=== PATIENT | male | born 1980 | race Caucasian/White ===

== ENCOUNTER 2018-12-26 12:48 | Emergency (ER) | payer OTHER ==
[2018-12-26] MEDS ORDERED: TYLENOL 325 MG PO STA (13:21)
--- NOTE | 2018-12-26 13:21 | ERPHSYRPT ---
- History of Present Illness Time Seen by Provider: 12/26/18 13:10 Source: patient Exam Limitations: clinical condition Patient Subjective Stated Complaint: Pt states that he was trying to get into his vehicle yesterday and twisted his right leg which is now causing pain, can place weight on it but when he lifts it up, it hurts Triage Nursing Assessment: Pt c/o of right leg/knee pain that was due to him trying to get out of a vehicle yesterday and twisted his leg, states that he can put weight on it with no problems but when he lifts the leg is when he has the pain, pain is just below the right knee on the lateral side, no difficulties with strength, vitals wnl, pulses normal, doesn't appear to be in any distress Physician History: PATIENT COMPLAINS OF PAIN IN HIS RIGHT KNEE AFTER TWISTING KNEE WHILE STEPPING OUT OF HIS TRUCK YESTERDAY. DENIES DEFORMITY, SWELLING OR BRUISING. HAS PAIN UPON AMBULATION WHILE LIFTING UP LEG TO TAKE A STEP. Method of Injury: twisted Occurred: yesterday Quality: intermittent Severity of Pain-Max: mild Severity of Pain-Current: mild Lower Extremities Pain: knee: right Modifying Factors: Improves With: movement Associated Symptoms: other (PAIN OVER OUTER ASPECT OF RIGHT KNEE WHILE LIFTING FOOT OFF GROUND) Allergies/Adverse Reactions: codeine [Codeine] Allergy (Severe, Verified 12/26/18 13:05) Difficulty Breathing Home Medications: Famotidine 20 mg PO BID 09/07/14 [History] Metformin HCl 500 mg [Glucophage 500 MG] 500 mg PO BID 09/07/14 [History] Omeprazole 20 MG [Prilosec 20 mg] 20 mg PO DAILY 09/07/14 [History] Tizanidine HCl 4 mg [Zanaflex 4 MG] 4 mg PO Q8H 09/07/14 [History] Aspirin EC 325 mg [Ecotrin 325 MG] 325 mg PO DAILY 05/18/15 [History] Calcium Carb/Magnesium Hydrox [Rolaids Chewable Tablet] 1 tab PO UD PRN [History] Liraglutide [Victoza 2-Joseph] 1.8 mg SQ DAILY 12/23/15 [History] Empagliflozin [Jardiance] 25 mg PO DAILY 12/26/18 [History] Hx Tetanus, Diphtheria Vaccination/Date Given: Yes Hx Influenza Vaccination/Date Given: Yes Hx Pneumococcal Vaccination/Date Given: No - Past Medical History Pertinent Past Medical History: Yes Cardiac History: High Cholesterol, Hypertension Endocrine Medical History: Diabetes Type II GI Medical History: GERD Other Medical History: low blood sugar - Past Surgical History Past Surgical History: Yes Neuro Surgical History: Other Gastrointestinal: Cholecystectomy Musculoskeletal: Orthopedic Surgery Other Surgical History: Head trauma as a child - L elbow - t&A - Social History Smoking Status: Never smoker Exposure to second hand smoke: No Drug Use: none Patient Lives Alone: No - Nursing Vital Signs Nursing Vital Signs: Initial Vital Signs Temperature 98.1 F 12/26/18 12:54 Pulse Rate 88 12/26/18 12:54 Respiratory Rate 18 12/26/18 12:54 Blood Pressure 128/89 12/26/18 12:54 O2 Sat by Pulse Oximetry 95 12/26/18 12:54 Pain Scale Pain Intensity 4 - Physical Exam SpO2: 95 Ordered Tests: Active Orders 24 hr Category Date Time Status KNEE (3 VIEWS) Stat Exams 12/26/18 13:24 Taken Medication Summary Discontinued Medications Generic Name Dose Route Start Last Admin Trade Name Cate PRN Reason Stop Dose Admin Acetaminophen 650 mg 12/26/18 13:21 12/26/18 13:25 Tylenol 325 Mg PO 12/26/18 13:22 650 mg STAT STA Administration Acetaminophen Confirm 12/26/18 13:24 Tylenol 325 Mg Administered 12/26/18 13:25 Dose 650 mg .ROUTE .STK-MED ONE - Progress Counseled pt/family regarding: diagnosis, need for follow-up, rad results - Departure Departure Disposition: Home Clinical Impression: RIGHT KNEE STRAIN Condition: Stable Critical Care Time: No Referrals: CRISTHIAN CASTRO MD [Primary Care Provider] - Additional Instructions: TYLENOL EVERY 4 HOURS NEEDED FOR PAIN. APPLY ICE OVER YOUR KNEE EVERY 4 HOURS , 30 MINUTES FOR 48 HOURS. CONSULT YOUR PRIMARY CARE PROVIDER FOR EVALUATION.
[2018-12-26] MEDS ORDERED: TYLENOL 325 MG ONE (13:24)
--- NOTE | 2018-12-26 13:58 | XRAY ---
Indication: Pain following twisting injury. Comparison: None 3 views of the right knee demonstrates minimal medial knee spurring. No other bony, articular, or soft tissue abnormalities.
[2018-12-26 14:13] VITALS: BP 129/83
[2018-12-26 14:15] VITALS: PULSE 83; O2SAT 96
== END 2018-12-26 14:20 | disposition home or self-care (01) ==
LOC: ED 12:48
DX: S83.91XA Sprain of unspecified site of right knee, initial encounter (principal); X50.1XXA Overexertion from prolonged static or awkward postures, initial encounter; M25.561 Pain in right knee; I10 Essential (primary) hypertension; E78.00 Pure hypercholesterolemia, unspecified; E11.9 Type 2 diabetes mellitus without complications; Z79.4 Long term (current) use of insulin; K21.9 Gastro-esophageal reflux disease without esophagitis
CPT/HCPCS: 73562; 99283; A9270-GY

== ENCOUNTER 2019-08-01 20:01 | Emergency (ER) | payer OTHER ==
[2019-08-01] MEDS ORDERED: Sodium Chloride 0.9% 1000 ML 1,000 ML ONE (20:50)
[2019-08-01] MEDS ORDERED: PROTONIX 40 MG IV IV ONE (20:50)
[2019-08-01] MEDS ORDERED: Compazine 10 MG/2 ML ONE (20:50)
[2019-08-01 20:54] LABS: Absolute Neutrophil Ct (ANC) 6.93 (1.4-6.9); BASOPHIL % 0.6 % (0.0-0.4); Basophil (Absolute #) 0.06 (0-0.4); Eosinophil % 1.6 % (0.00-5.0); Eosinophil (Absolute #) 0.16 (0-0.5); Hematocrit 43.7 % (42-50); Hemoglobin 15.4 gm/dl (12.5-18.0); Lymphocyte (Absolute #) 1.68 (1.0-4.6); Lymphocytes % 16.5 % (24.0-44.0); Mean Cell Volume 87.1 fl (78-100); Mean Corpuscular Hemoglobin 30.7 pg (26-32); Mean Corpuscular Hgb Concent. 35.2 g/dl (32-36); Mean Platelet Volume 11.3 fl (6-9.5); Monocyte (Absolute #) 1.33 (0.0-1.3); Monocytes % 13.1 % (0.0-12.0); Neutrophil % 68.2 % (36.0-66.0); Platelet Count 265 K/mm3 (150-450); Red Blood Count 5.02 M/mm3 (4.1-5.6); Red Cell Distribution Width 13.5 % (11.5-14.0); White Blood Count 10.2 K/mm3 (4.0-10.5)
[2019-08-01] MEDS: PROTONIX 40 MG IV IV ONE (20:58)
[2019-08-01] MEDS: Sodium Chloride 0.9% 1000 ML 1,000 ML IV STA (20:58)
[2019-08-01 20:59] LABS: ALBUMIN 4.7 g/dL (3.5-5.0); ALKALINE PHOSPHATASE 82 U/L (38-126); AMYLASE 107 U/L (30-110); ANION GAP 16.5 MEQ/L (5-15); BLOOD UREA NITROGEN 28 mg/dL (9-20); CHLORIDE 98 mmol/L (98-107); Calcium 9.8 mg/dL (8.4-10.2); Carbon Dioxide 27 mmol/L (22-30); Creatinine 1 1.02 mg/dL (0.66-1.25); Glucose 99 mg/dL (74-106); LIPASE 361 U/L (23-300); Potassium 3.7 mmol/L (3.5-5.1); SGOT/AST 71 U/L (17-59); SGPT/ALT 49 U/L (0-50); SODIUM 138 mmol/L (137-145); Total Protein 7.9 g/dL (6.3-8.2)
[2019-08-01] MEDS: Compazine 10 MG/2 ML IV ONE (20:59)
[2019-08-01 22:00] LABS: Appearance CLEAR (CLEAR); Bilirubin NEGATIVE (NEGATIVE); Blood SMALL Ery/ul (0-5); Glucose >=500 mg/dL (NEGATIVE); Ketones NEGATIVE (NEGATIVE); Leukocyte Esterase NEGATIVE (NEGATIVE); Mucus SLIGHT /HPF (NEGATIVE); Nitrite NEGATIVE (NEGATIVE); Protein,Urine Dip NEGATIVE (Negative); Specific Gravity 1.026 (1.005-1.025); Urobilinogen NEGATIVE mg/dL (0-1)
[2019-08-01 22:06] LABS: Bacteria NONE SEEN /HPF (NEGATIVE); RBC NONE SEEN /HPF (0-2)
[2019-08-01 22:55] VITALS: O2SAT 97
--- NOTE | 2019-08-01 23:47 | ERPHSYRPT ---
- History of Present Illness Patient Subjective Stated Complaint: pt states he has diarrhea 3 times in the past 3 days, nausea and ruq plus luq pain that rates 10 states pt. pt states that his appetite is normal. Triage Nursing Assessment: bowel sounds q4 quadrants. pt states pain is 10, but pt is sitting in bed conversing pleasantly with his mom. Timing/Duration: day(s) (4) Activities at Onset: none Quality: cramping, fullness Abdominal Pain Onset Location: periumbilical Pain Radiation: no radiation Severity of Pain-Max: moderate Severity of Pain-Current: moderate Allergies/Adverse Reactions: codeine [Codeine] Allergy (Severe, Verified 12/26/18 13:05) Difficulty Breathing Home Medications: Famotidine 20 mg PO BID 09/07/14 [History] Metformin HCl 500 mg [Glucophage 500 MG] 500 mg PO BID 09/07/14 [History] Omeprazole 20 MG [Prilosec 20 mg] 20 mg PO DAILY 09/07/14 [History] Tizanidine HCl 4 mg [Zanaflex 4 MG] 4 mg PO Q8H 09/07/14 [History] Aspirin EC 325 mg [Ecotrin 325 MG] 325 mg PO DAILY 05/18/15 [History] Calcium Carb/Magnesium Hydrox [Rolaids Chewable Tablet] 1 tab PO UD PRN [History] Liraglutide [Victoza 2-Joseph] 1.8 mg SQ DAILY 12/23/15 [History] Empagliflozin [Jardiance] 25 mg PO DAILY 12/26/18 [History] Hx Tetanus, Diphtheria Vaccination/Date Given: Yes Hx Influenza Vaccination/Date Given: Yes (2wks) Hx Pneumococcal Vaccination/Date Given: No Immunizations Up to Date: Yes - Review of Systems Constitutional: No Fever, No Chills Eyes: No Symptoms Ears, Nose, & Throat: No Symptoms Respiratory: No Cough, No Dyspnea Cardiac: No Chest Pain, No Edema, No Syncope Abdominal/Gastrointestinal: Abdominal Pain, Diarrhea, No Nausea, No Vomiting Genitourinary Symptoms: No Dysuria Musculoskeletal: No Back Pain, No Neck Pain Skin: No Rash Neurological: No Dizziness, No Focal Weakness, No Sensory Changes Psychological: No Symptoms Endocrine: No Symptoms All Other Systems: Reviewed and Negative - Past Medical History Pertinent Past Medical History: Yes Cardiac History: High Cholesterol, Hypertension Endocrine Medical History: Diabetes Type II GI Medical History: GERD Other Medical History: low blood sugar - Past Surgical History Past Surgical History: Yes Neuro Surgical History: Other Gastrointestinal: Cholecystectomy Musculoskeletal: Orthopedic Surgery Other Surgical History: Head trauma as a child - L elbow - t&A - Social History Smoking Status: Never smoker Exposure to second hand smoke: No Drug Use: none Patient Lives Alone: No - Nursing Vital Signs Nursing Vital Signs: Initial Vital Signs Temperature 97.9 F 08/01/19 20:16 Pulse Rate 104 H 08/01/19 20:16 Respiratory Rate 20 08/01/19 20:16 Blood Pressure 110/77 08/01/19 20:16 O2 Sat by Pulse Oximetry 94 L 08/01/19 20:16 Pain Scale Pain Intensity 0 - Physical Exam General Appearance: no apparent distress, alert Eye Exam: PERRL/EOMI, eyes nml inspection Ears, Nose, Throat Exam: normal ENT inspection, pharynx normal, moist mucous membranes Neck Exam: normal inspection, non-tender, supple, full range of motion Respiratory Exam: normal breath sounds, lungs clear, No respiratory distress Cardiovascular Exam: regular rate/rhythm, normal heart sounds Gastrointestinal/Abdomen Exam: soft, tenderness, guarding, No mass Back Exam: normal inspection, normal range of motion, No CVA tenderness, No vertebral tenderness Extremity Exam: normal inspection, normal range of motion, pelvis stable Neurologic Exam: alert, oriented x 3, cooperative, normal mood/affect, nml cerebellar function, sensation nml, No motor deficits Skin Exam: normal color, warm, dry SpO2: 97 - Course Nursing assessment & vital signs reviewed: Yes - CT Exams Abdomen/Pelvis CT Interpretation: Negative Ordered Tests: Active Orders 24 hr Category Date Time Status IV Insertion STAT Care 08/01/19 20:31 Active ABDOMEN AND PELVIS W CONTRAST [CT] Stat Exams 08/01/19 20:44 Taken AMYLASE Stat Lab 08/01/19 20:51 Completed CBC W DIFF Stat Lab 08/01/19 20:51 Completed CMP Stat Lab 08/01/19 20:51 Completed LIPASE Stat Lab 08/01/19 20:51 Completed Lactic Acid Stat Lab 08/01/19 21:00 Completed UA W/RFX UR CULTURE Stat Lab 08/01/19 21:55 Completed Medication Summary Discontinued Medications Generic Name Dose Route Start Last Admin Trade Name Freq PRN Reason Stop Dose Admin Sodium Chloride 1,000 mls @ 999 mls/hr 08/01/19 20:43 08/01/19 21:59 Sodium Chloride 0.9% 1000 Ml IV 08/01/19 21:43 Infused .Q1H1M STA Infusion Sodium Chloride Confirm 08/01/19 20:50 Sodium Chloride 0.9% 1000 Ml Administered 08/01/19 20:51 Dose 1,000 mls @ ud .ROUTE .STK-MED ONE Pantoprazole Sodium 40 mg 08/01/19 20:43 08/01/19 20:58 Protonix 40 Mg Iv IV 08/01/19 20:44 40 mg STAT ONE Administration Pantoprazole Sodium Confirm 08/01/19 20:50 Protonix 40 Mg Iv Administered 08/01/19 20:51 Dose 40 mg IV .STK-MED ONE Prochlorperazine Edisylate 5 mg 08/01/19 20:43 08/01/19 20:59 Compazine 10 Mg/2 Ml IV 08/01/19 20:44 5 mg STAT ONE Administration Prochlorperazine Edisylate Confirm 08/01/19 20:50 Compazine 10 Mg/2 Ml Administered 08/01/19 20:51 Dose 10 mg .ROUTE .STK-MED ONE Lab/Rad Data: Laboratory Result Diagrams 08/01/19 20:51 08/01/19 20:51 Laboratory Results 08/01/19 08/01/19 08/01/19 Range/Units 21:55 21:00 20:51 WBC (4.0-10.5) K/mm3 RBC (4.1-5.6) M/mm3 Hgb (12.5-18.0) gm/dl Hct (42-50) % MCV (78-100) fl MCH (26-32) pg MCHC (32-36) g/dl RDW (11.5-14.0) % Plt Count (150-450) K/mm3 MPV (6-9.5) fl Gran % (36.0-66.0) % Eos # (Auto) (0-0.5) Absolute Lymphs (auto) (1.0-4.6) Absolute Monos (auto) (0.0-1.3) Lymphocytes % (24.0-44.0) % Monocytes % (0.0-12.0) % Eosinophils % (0.00-5.0) % Basophils % (0.0-0.4) % Absolute Granulocytes (1.4-6.9) Basophils # (0-0.4) Sodium 138 (137-145) mmol/L Potassium 3.7 (3.5-5.1) mmol/L Chloride 98 (98-107) mmol/L Carbon Dioxide 27 (22-30) mmol/L Anion Gap 16.5 H (5-15) MEQ/L BUN 28 H (9-20) mg/dL Creatinine 1.02 (0.66-1.25) mg/dL Estimated GFR > 60.0 ML/MIN Glucose 99 (74-106) mg/dL Lactic Acid 1.6 (0.4-2.0) Calcium 9.8 (8.4-10.2) mg/dL Total Bilirubin 1.40 H (0.2-1.3) mg/dL AST 71 H (17-59) U/L ALT 49 (0-50) U/L Alkaline Phosphatase 82 (38-126) U/L Serum Total Protein 7.9 (6.3-8.2) g/dL Albumin 4.7 (3.5-5.0) g/dL Amylase 107 (30-110) U/L Lipase 361 H (23-300) U/L Urine Color YELLOW (YELLOW) Urine Appearance CLEAR (CLEAR) Urine pH 5.0 (5-6) Ur Specific [place] 1.026 (1.005-1.025) Urine Protein NEGATIVE (Negative) Urine Ketones NEGATIVE (NEGATIVE) Urine Blood SMALL (0-5) Harris/ul Urine Nitrite NEGATIVE (NEGATIVE) Urine Bilirubin NEGATIVE (NEGATIVE) Urine Urobilinogen NEGATIVE (0-1) mg/dL Ur Leukocyte Esterase NEGATIVE (NEGATIVE) Urine WBC (Auto) NONE (0-5) /HPF Urine RBC (Auto) NONE SEEN (0-2) /HPF U Epithel Cells (Auto) NONE (FEW) /HPF Urine Bacteria (Auto) NONE SEEN (NEGATIVE) /HPF Urine Mucus (Auto) SLIGHT (NEGATIVE) /HPF Urine Culture Reflexed NO (NO) Urine Glucose >=500 (NEGATIVE) mg/dL 08/01/19 Range/Units 20:51 WBC 10.2 (4.0-10.5) K/mm3 RBC 5.02 (4.1-5.6) M/mm3 Hgb 15.4 (12.5-18.0) gm/dl Hct 43.7 (42-50) % MCV 87.1 (78-100) fl MCH 30.7 (26-32) pg MCHC 35.2 (32-36) g/dl RDW 13.5 (11.5-14.0) % Plt Count 265 (150-450) K/mm3 MPV 11.3 H (6-9.5) fl Gran % 68.2 H (36.0-66.0) % Eos # (Auto) 0.16 (0-0.5) Absolute Lymphs (auto) 1.68 (1.0-4.6) Absolute Monos (auto) 1.33 H (0.0-1.3) Lymphocytes % 16.5 L (24.0-44.0) % Monocytes % 13.1 H (0.0-12.0) % Eosinophils % 1.6 (0.00-5.0) % Basophils % 0.6 (0.0-0.4) % Absolute Granulocytes 6.93 H (1.4-6.9) Basophils # 0.06 (0-0.4) Sodium (137-145) mmol/L Potassium (3.5-5.1) mmol/L Chloride (98-107) mmol/L Carbon Dioxide (22-30) mmol/L Anion Gap (5-15) MEQ/L BUN (9-20) mg/dL Creatinine (0.66-1.25) mg/dL Estimated GFR ML/MIN Glucose (74-106) mg/dL Lactic Acid (0.4-2.0) Calcium (8.4-10.2) mg/dL Total Bilirubin (0.2-1.3) mg/dL AST (17-59) U/L ALT (0-50) U/L Alkaline Phosphatase (38-126) U/L Serum Total Protein (6.3-8.2) g/dL Albumin (3.5-5.0) g/dL Amylase (30-110) U/L Lipase (23-300) U/L Urine Color (YELLOW) Urine Appearance (CLEAR) Urine pH (5-6) Ur Specific [place] (1.005-1.025) Urine Protein (Negative) Urine Ketones (NEGATIVE) Urine Blood (0-5) Harris/ul Urine Nitrite (NEGATIVE) Urine Bilirubin (NEGATIVE) Urine Urobilinogen (0-1) mg/dL Ur Leukocyte Esterase (NEGATIVE) Urine WBC (Auto) (0-5) /HPF Urine RBC (Auto) (0-2) /HPF U Epithel Cells (Auto) (FEW) /HPF Urine Bacteria (Auto) (NEGATIVE) /HPF Urine Mucus (Auto) (NEGATIVE) /HPF Urine Culture Reflexed (NO) Urine Glucose (NEGATIVE) mg/dL - Progress Progress: improved Counseled pt/family regarding: lab results, diagnosis - Departure Departure Disposition: Home Clinical Impression: Gastroenteritis Condition: Stable Critical Care Time: No Referrals: CRISTHIAN CASTRO MD [Primary Care Provider] - Additional Instructions: clear liquids for 2 days Prescriptions: Dicyclomine HCl 20 mg [Bentyl 20 mg] 20 mg PO TID #30 tablet Metronidazole 500 mg [Flagyl 500 MG] 500 mg PO TID #30 tablet
[2019-08-01 23:49] VITALS: BP 118/69; PULSE 88
--- NOTE | 2019-08-02 09:47 | XRAY ---
Indication: Abdomen pain and nausea 4 days. Multiple contiguous axial images obtained through the abdomen and pelvis using 80 cc of Isovue-370 contrast only. Comparison: None Lung bases demonstrates mild bilateral dependent atelectasis. No infiltrate or effusion. Heart is not enlarged. Noncontrasted stomach and bowel loops appear nonobstructed. Normal appendix. Previous cholecystectomy. No free fluid/air. Mild diffuse fatty liver and 15.2 cm splenomegaly. Remaining liver, pancreas, spleen, adrenal glands, kidneys, ureters, bladder, and aorta appear unremarkable. No pathologic retroperitoneal lymphadenopathy. Osseous structures intact. Impression: 1. Fatty liver and splenomegaly. 2. Remaining CT abdomen/pelvis with contrast exam is negative. Comment: Preliminary interpretation was made by [facility]. No discrepancy. CTDI 25.34
== END 2019-08-01 23:58 | disposition home or self-care (01) ==
LOC: ED 20:01
DX: K52.9 Noninfective gastroenteritis and colitis, unspecified (principal)
CPT/HCPCS: 36000; 36415; 74177; 80053; 81001; 82150; 83605; 83690; 85025; 96374; 96375; 99284

== ENCOUNTER 2022-06-06 11:27 | Emergency (ER) | payer OTHER ==
--- NOTE | 2022-06-06 11:29 | ERPHSYRPT ---
- History of Present Illness Time Seen by Provider: 06/06/22 11:29 Source: patient Exam Limitations: no limitations Physician History: This is a diabetic 41-year-old white male patient of Dr. Castro who was called in [facility] for a sinus infection that the patient just picked up today. However, patient did complain of some left ear pain with mild amount of drainage this morning. Patient has not taken any antibiotics at this point. Timing/Duration: abrupt onset, this morning Severity: mild (To moderate) ENT Location: ear (L) Prearrival Treatment: no prearrival treatment Modifying Factors: Improves With: activity Associated Symptoms: ear pain (L), No hearing loss Allergies/Adverse Reactions: codeine [Codeine] Allergy (Severe, Verified 12/26/18 13:05) Difficulty Breathing Home Medications: Famotidine 20 mg PO BID 09/07/14 [History] Metformin HCl 500 mg [Glucophage 500 MG] 500 mg PO BID 09/07/14 [History] Omeprazole 20 MG [Prilosec 20 mg] 20 mg PO DAILY 09/07/14 [History] Tizanidine HCl 4 mg [Zanaflex 4 MG] 4 mg PO Q8H 09/07/14 [History] Aspirin EC 325 mg [Ecotrin 325 MG] 325 mg PO DAILY 05/18/15 [History] Calcium Carb/Magnesium Hydrox [Rolaids Chewable Tablet] 1 tab PO UD PRN 12/23/15 [History] Liraglutide [Victoza 2-Joseph] 1.8 mg SQ DAILY 12/23/15 [History] Empagliflozin [Jardiance] 25 mg PO DAILY 12/26/18 [History] Azithromycin 250 mg [Zithromax 250 MG TABLET] 250 mg PO DAILY 06/06/22 [History] Hx Tetanus, Diphtheria Vaccination/Date Given: Yes Hx Influenza Vaccination/Date Given: Yes (2wks) Hx Pneumococcal Vaccination/Date Given: No Travel Risk - International Travel Have you traveled outside of the country in past 3 weeks: No - Coronavirus Screening Are you exhibiting any of the following symptoms?: No Close contact with a COVID-19 positive Pt in past 14-21 Days: No - Review of Systems Constitutional: No Symptoms Eyes: No Symptoms Ears, Nose, & Throat: Ear Pain (Left), Ear Discharge (Leftclear drainage) Respiratory: No Symptoms Cardiac: No Symptoms Abdominal/Gastrointestinal: No Symptoms Genitourinary Symptoms: No Symptoms Musculoskeletal: No Symptoms Skin: No Symptoms Neurological: No Symptoms Psychological: No Symptoms Endocrine: No Symptoms Hematologic/Lymphatic: No Symptoms Immunological/Allergic: No Symptoms All Other Systems: Reviewed and Negative - Past Medical History Pertinent Past Medical History: Yes Cardiac History: High Cholesterol, Hypertension Endocrine Medical History: Diabetes Type II GI Medical History: GERD Other Medical History: low blood sugar - Past Surgical History Past Surgical History: Yes Neuro Surgical History: Other Gastrointestinal: Cholecystectomy Musculoskeletal: Orthopedic Surgery Other Surgical History: Head trauma as a child - L elbow - t&A - Social History Smoking Status: Never smoker Exposure to second hand smoke: No Drug Use: none Patient Lives Alone: No - Nursing Vital Signs Nursing Vital Signs: Initial Vital Signs Temperature 98.3 F 06/06/22 11:49 Pulse Rate 96 H 06/06/22 11:49 Respiratory Rate 20 06/06/22 11:49 Blood Pressure 129/40 06/06/22 11:49 O2 Sat by Pulse Oximetry 94 L 06/06/22 11:49 Pain Scale Pain Intensity 6 - Physical Exam General Appearance: no apparent distress, alert, obese Eye Exam: bilateral eye: normal inspection, PERRL, EOMI Ear Exam: right ear: canal normal, TM normal, left ear: discharge, tenderness, TM perforation (? Small), bilateral ear: auricle normal Nasal Exam: normal inspection Throat Exam: normal, pharynx normal, No dental tenderness, No voice changes Neck Exam: normal inspection, non-tender, supple, full range of motion Cardiovascular/Respiratory Exam: chest non-tender, no respiratory distress Abdominal Exam: non-tender Neurologic Exam: alert, oriented x 3, cooperative, electrical calibrator II-XII nml as tested, normal mood/affect, nml cerebellar function, nml station & gait, sensation nml Skin Exam: normal color, warm, dry SpO2 Interpretation: normal O2 Delivery: Room Air - Course Nursing assessment & vital signs reviewed: Yes Ordered Tests: Medication Summary Discontinued Medications Generic Name Dose Route Start Last Admin Trade Name Freq PRN Reason Stop Dose Admin Ceftriaxone Sodium 1,000 mg 06/06/22 12:30 Ceftriaxone Sodium 1000 Mg Inj Vial IM 06/06/22 12:31 STAT ONE Methylprednisolone Sodium 0 mg 06/06/22 12:30 Succinate 125 mg/ Sterile IM 06/06/22 12:31 Water 2 ml STAT ONE - Progress Progress: unchanged - Departure Departure Disposition: Home Clinical Impression: Left otitis media with effusion Condition: Stable Critical Care Time: No Referrals: CRISTHIAN CASTRO MD [Primary Care Provider] - Follow up/PCP as directed Additional Instructions: Continue your antibiotic as prescribed. [employer] the prednisone prescription and take as prescribed. Monitor your blood sugar closely and adjust your medication for diabetes as needed. Follow-up with your primary prescribing physician for further evaluation and management. Prescriptions: Prednisone 10 mg [Deltasone 10 mg] 10 mg PO TID #12 tablet
[2022-06-06] MEDS ORDERED: solu-MEDROL 125 MG, Sterile H2O 10 ml 2 ML IM ONE ×2 (12:30)
[2022-06-06] MEDS ORDERED: Rocephin 1000 MG INJ IM ONE (12:30)
[2022-06-06 12:39] VITALS: BP 124/52; PULSE 90; O2SAT 96
[2022-06-06] MEDS ORDERED: XYLOCAINE 1% HCL 20 ML MDV ONE (12:40)
[2022-06-06] MEDS ORDERED: Sterile H2O 10 ml IJ ONE (12:40)
[2022-06-06] MEDS ORDERED: solu-MEDROL ONE (12:40)
[2022-06-06] MEDS ORDERED: Rocephin 1000 MG INJ ONE (12:40)
== END 2022-06-06 13:14 | disposition home or self-care (01) ==
LOC: ED 11:27
DX: H65.92 Unspecified nonsuppurative otitis media, left ear (principal); H92.02 Otalgia, left ear; E78.5 Hyperlipidemia, unspecified; I10 Essential (primary) hypertension; E11.9 Type 2 diabetes mellitus without complications; Z79.84 Long term (current) use of oral hypoglycemic drugs; Z79.52 Long term (current) use of systemic steroids; Z79.899 Other long term (current) drug therapy
CPT/HCPCS: 96372; 99283; J0696; J2930